=== PATIENT | female | born 1965 | race Caucasian/White ===

== ENCOUNTER 2017-06-09 16:42 | Observation (INO) | payer OTHER ==
[2017-06-09] MEDS ORDERED: ISOVUE-370 76%-LOCM 1 ML ONE (17:19)
[2017-06-09 17:45] LABS: Hematocrit 35.7 % (36.0-47.0); Mean Platelet Volume 6.7 fL (7.4-10.4); Red Blood Cell (RBC) Count 3.09 mill/uL (4.20-5.40); White Blood Cell (WBC) Count 9.7 thou/uL (4.8-10.8)
[2017-06-09 18:01] LABS: ALT (SGPT) 35 U/L (8-55); AST (SGOT) 160 U/L (5-34); Alkaline Phosphatase 135 U/L (40-150); Anion Gap 16 mmol/L (10-20); BUN (Urea Nitrogen) 7 mg/dL (7.0-18.7); Bilirubin, Total 1.4 mg/dL (0.2-1.2); Calc. Creatinine Clearance 0 mL/min (70-130); Calcium 9.2 mg/dL (7.8-10.44); Carbon Dioxide 23 mmol/L (22-29); Chloride 106 mmol/L (98-107); Estimated GFR-MDRD 84; Globulin 3.8 g/dL (2.4-3.5); Protein, Total 7.5 g/dL (6.0-8.3)
[2017-06-09 18:06] LABS: #Basophils 0.2 thou/uL (0.0-0.2); #Eosinphils 0.4 thou/uL (0.0-0.7); #Lymphocytes 2.2 thou/uL (1.20-3.40); #Monocytes 0.6 thou/uL (0.11-0.59); #Neutrophils 6.3 thou/uL (1.40-6.50); %Basophils 1.6 % (0.0-1.0); %Eosinophils 4.4 % (0.0-10.0); %Lymphocytes 22.3 % (21.0-51.0); %Monocytes 6.1 % (0.0-10.0)
[2017-06-09 18:07] LABS: Macrocytosis SLIGHT = 6-15 cells (100X) (0-5/hpf)
[2017-06-09] MEDS ORDERED: Fentanyl 100 MCG/2 ML VIAL ONE ×2 (18:17→19:46)
[2017-06-09 18:20] LABS: Troponin I Less than 0.010 ng/mL (< 0.028)
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
[2017-06-09] MEDS ORDERED: Ondansetron HCl/PF 4 MG/2 ML Vial ONE (20:08)
[2017-06-09] MEDS ORDERED: Ketorolac Tromethamine 30 MG/ML VIAL ONE (20:08)
[2017-06-09 20:16] LABS: Bilirubin Negative (Negative); Blood, Urine Trace (Negative); Glucose, Urine (Dipstick) Negative (Negative); Ketone, Urine Negative (Negative); Nitrite Positive (Negative); Protein, Urine (Dipstick) Trace mg/dL (Neg-Trace)
[2017-06-09 20:17] LABS: Bacteria/HPF 4+ HPF (None Seen); Hyaline Casts/LPF 0-3 HYALINE CAST LPF (0-3 Hyaline); RBC/HPF 0-3 HPF (0-3); Squamous Epithelial 0-3 HPF (0-3)
[2017-06-09 20:25] LABS: Amphetamine Not Detected (NotDetected); Methadone Not Detected (NotDetected); Methamphetamine Not Detected (NotDetected)
[2017-06-09] MEDS ORDERED: Acetaminophen 325 MG TAB PO PRN (21:24)
[2017-06-09] MEDS ORDERED: Morphine 4 MG/ML VIAL SLOW IVP PRN (21:24)
[2017-06-09] MEDS ORDERED: Ondansetron ODT 4 MG TAB SL PRN (21:24)
[2017-06-09] MEDS ORDERED: Ondansetron HCl/PF 4 MG/2 ML Vial IVP PRN ×2 (21:24→21:39)
[2017-06-09] MEDS ORDERED: Rib Fracture Protocol PO SCH (21:39)
[2017-06-09] MEDS ORDERED: Ondansetron ODT 4 MG TAB PO PRN (21:39)
[2017-06-09] MEDS ORDERED: Dextrose 5% in Water 1,000 ML IV PRN (21:39)
[2017-06-09] MEDS ORDERED: Dextrose 50% Abboject 50 ML SYRINGE SLOW IVP PRN (21:39)
[2017-06-09] MEDS ORDERED: Promethazine HCl 25 MG/ML VIAL IM PRN ×2 (21:39)
[2017-06-09] MEDS ORDERED: Cyclobenzaprine 10 MG TAB PO PRN (22:00)
[2017-06-09] MEDS ORDERED: cefTRIAXone\\ROCEPHIN 1 GM in Sodium Chloride 0.9% 100 ML IVPB SCH (22:00)
[2017-06-09] MEDS: Sodium Chloride 0.9% 1,000 ML IV SCH (22:08)
[2017-06-09] MEDS ORDERED: cefTRIAXone\\ROCEPHIN 1 GM, Syringe 0.4 ML in Sterile Water 9.6 ML SLOW IVP SCH (22:15)
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
[2017-06-09] MEDS: traMADol HCl 50 MG TAB PO SCH (23:55)
[2017-06-09] MEDS: Ibuprofen 800 MG TAB PO SCH (23:55)
[2017-06-09] MEDS: Acetaminophen 500 MG TAB PO SCH (23:56)
[2017-06-10] MEDS: Sodium Chloride 0.9% 1,000 ML IV SCH ×2 (05:33→15:51)
[2017-06-10] MEDS: traMADol HCl 50 MG TAB PO SCH ×2 (05:33→12:06)
[2017-06-10] MEDS: Acetaminophen 500 MG TAB PO SCH ×2 (05:34→12:06)
[2017-06-10] MEDS: Ibuprofen 800 MG TAB PO SCH ×2 (05:34→12:06)
[2017-06-10 05:45] LABS: Anion Gap 12 mmol/L (10-20); BUN (Urea Nitrogen) 6 mg/dL (7.0-18.7); Calc. Creatinine Clearance 43 mL/min (70-130); Calcium 7.9 mg/dL (7.8-10.44); Carbon Dioxide 21 mmol/L (22-29); Chloride 106 mmol/L (98-107); Estimated GFR-MDRD Greater than 90
[2017-06-10 05:53] LABS: #Basophils 0.1 thou/uL (0.0-0.2); #Eosinphils 0.2 thou/uL (0.0-0.7); #Lymphocytes 1.4 thou/uL (1.20-3.40); #Monocytes 0.6 thou/uL (0.11-0.59); #Neutrophils 4.9 thou/uL (1.40-6.50); %Basophils 0.9 % (0.0-1.0); %Eosinophils 2.7 % (0.0-10.0); %Lymphocytes 19.9 % (21.0-51.0); %Monocytes 8.9 % (0.0-10.0); Hematocrit 29.1 % (36.0-47.0); Red Blood Cell (RBC) Count 2.54 mill/uL (4.20-5.40); White Blood Cell (WBC) Count 7.2 thou/uL (4.8-10.8)
[2017-06-10] MEDS: hydrALAZINE 20 MG/ML VIAL SLOW IVP PRN ×2 (09:25→15:56)
--- NOTE | 2017-06-10 09:31 | RAD ---
PORTABLE AP CHEST XRAY: DATE: 06/10/17. HISTORY: Followup sternal fracture. COMPARISON: 06/09/17. FINDINGS: Cardiac silhouette and pulmonary vasculature are within normal limits. Lungs are clear. There is mi ld prominence of the right suprahilar region in a right paratracheal location, but a similar finding was noted on the prior exam. There is asymmetric left apical pleural thickening which was present o n the study 06/09/17 that was not present on the studies of 11/11/15. The exact etiology for this fin ding is uncertain. Osseous structures appear intact. No other interval change. IMPRESSION: 1. Left apical pleural-based density which is also seen on the study of 06/09/17. This is likely re lated to patient's recent chest injury and probably related to pleural fluid or small amount of hemor rhage. The lungs are otherwise clear. 2. Prominence of the right suprahilar paratracheal soft tissues, some of which is related to mild di splacement of the fracture fragments involving the sternum, and this was also present on the prior ex am. 3. No evidence of a pneumothorax. POS: [facility]
[2017-06-10] MEDS: Gabapentin 300 MG CAP PO SCH ×2 (10:35→15:57)
[2017-06-10 13:37] VITALS: BMI 17.0
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
[2017-06-10 21:26] VITALS: BP 150/80; TEMP 98.7
== END 2017-06-10 16:55 | disposition home or self-care (01) ==
LOC: ERS 16:42 → SURG B 19:54
PROVIDERS: ADMIT Surgery; ATTEND Surgery
DX: S12.600A Unspecified displaced fracture of seventh cervical vertebra, initial encounter for closed fracture (principal); S22.20XA Unspecified fracture of sternum, initial encounter for closed fracture; G89.11 Acute pain due to trauma; N39.0 Urinary tract infection, site not specified; K74.60 Unspecified cirrhosis of liver; I10 Essential (primary) hypertension; F32.9 Major depressive disorder, single episode, unspecified; F17.210 Nicotine dependence, cigarettes, uncomplicated; V49.40XA Driver injured in collision with unspecified motor vehicles in traffic accident, initial encounter; Z79.899 Other long term (current) drug therapy
CPT/HCPCS: 36415; 70450; 70498; 71010; 71260; 80048; 80053; 80306; 80307; 81003; 81015; 82553; 84484; 85025; 93005; 94640; 96361; 96374; 96375; 96376; A4216; G0378; G0390; G8978-GP-CJ; G8979-GP-CJ; G8980-GP-CJ; G8987-GO-CJ; G8988-GO-CI; J0360; J0696; J1885; J2405; J3010; J7620

== ENCOUNTER 2017-06-25 15:24 | Outpatient (CLI) | payer OTHER ==
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
== END 2017-06-25 15:25 | disposition home or self-care (01) ==
LOC: RAD 15:24
PROVIDERS: ATTEND Nurse Practitioner Acute Care
DX: S79.8 Other specified injuries of hip and thigh (principal)

== ENCOUNTER 2019-03-28 04:56 | Inpatient (IN) | payer OTHER, SELFPAY ==
[2019-03-28] MEDS ORDERED: Ondansetron PF 4 MG/2 ML Vial ONE (05:59)
[2019-03-28] MEDS ORDERED: Octreotide Acetate 1,250 MCG in Sodium Chloride 0.9% 250 ML 250 ML IVPB SCH (06:15)
[2019-03-28] MEDS ORDERED: Pantoprazole 80 MG, Admixture Fee 1 EACH in Sodium Chloride 0.9% 100 ML IVPB SCH (06:15)
[2019-03-28] MEDS ORDERED: Octreotide Acetate 50 MCG/ML AMP SLOW IVP SCH ×2 (06:15→07:15)
[2019-03-28 06:46] LABS: INR-International Normal Ratio 2.4; Prothrombin Time 26.1 SEC (12.0-14.7)
[2019-03-28 06:49] LABS: ALT (SGPT) 19 U/L (8-55); AST (SGOT) 49 U/L (5-34); Albumin 2.5 g/dL (3.5-5.0); Alkaline Phosphatase 75 U/L (40-150); Anion Gap 15 mmol/L (10-20); BUN (Urea Nitrogen) 25 mg/dL (9.8-20.1); Bilirubin, Total 7.1 mg/dL (0.2-1.2); Calc. Creatinine Clearance 0 mL/min (70-130); Calcium 7.8 mg/dL (7.8-10.44); Carbon Dioxide 23 mmol/L (22-29); Chloride 103 mmol/L (98-107); Estimated GFR-MDRD 77; Globulin 2.6 g/dL (2.4-3.5); Glucose 131 mg/dL (70-105); Lipase 17 U/L (8-78); Potassium 3.5 mmol/L (3.5-5.1); Protein, Total 5.1 g/dL (6.0-8.3); Sodium 137 mmol/L (136-145)
[2019-03-28] MEDS ORDERED: Octreotide Acetate 100 MCG/ML VIAL SLOW IVP SCH (07:15)
[2019-03-28 07:20] LABS: #Lymphocytes 1.4 thou/uL (1.20-3.40); #Monocytes 0.7 thou/uL (0.11-0.59); #Neutrophils 8.4 thou/uL (1.40-6.50); %Basophils 0.2 % (0.0-1.0); %Eosinophils 0.4 % (0.0-10.0); %Lymphocytes 13.1 % (21.0-51.0); %Monocytes 6.5 % (0.0-10.0); %Neutrophils 79.9 % (42.0-75.0); Hemoglobin 6.9 g/dL (12.0-16.0); MDiff Complete? YES; Macrocytosis SLIGHT = 6-15 cells (100X) (0-5/hpf); Mean Corpuscular HGB CONC 32.4 g/dL (32.0-36.0); Mean Corpuscular Hemoglobin 39.6 pg (27.0-31.0); Mean Platelet Volume 9.6 fL (7.4-10.4); Platelet Count 103 thou/uL (130-400); Platelet Morphology Comment Appears Decreased; Polychromasia SLIGHT = 2-3 cells (100X) (0-2/hpf); RBC Distribution Width 13.7 % (11.5-14.5); Red Blood Cell (RBC) Count 1.73 mill/uL (4.20-5.40); Target Cells SLIGHT = 2-5 cells (100X) (0-1/hpf); White Blood Cell (WBC) Count 10.6 thou/uL (4.8-10.8)
[2019-03-28] MEDS: Dextrose 5 % And 0.9 % NaCl 1,000 ML IV SCH ×2 (08:46→18:38)
--- NOTE | 2019-03-28 09:09 | HP ---
PRIMARY CARE PHYSICIAN: None. CHIEF COMPLAINT: GI bleed. HISTORY OF PRESENT ILLNESS: Ms. Brandt is a 53-year-old female with a history of cirrhosis, who was evaluated initially at the [place] [facility] for GI bleed. She was prompted to go to the [place] ED following a progressive worsening of nausea and vomiting throughout the day, and then, noticed that the later episodes of emesis contained blood, history of alcoholism as well. Labs of the other ED included elevated lactic acid at 9, hemoglobin of 8.5, glucose 156, bilirubin total 8.5, AST 61, ALT 22, lipase 27. Hematocrit 25.7, platelets 148. Blood pressures in [place] 105/56 and 99/61. Sodium 138, potassium 3.4. The patient was given NS 500 mL, started on a Protonix drip, and was given octreotide at 50 mcg/hour and was given another a liter of fluid and some Zofran 8 mg, and then, transferred to [facility] for further workup and management. She was admitted to the medical floor. REVIEW OF SYSTEMS: The patient reports crampy abdominal pain, still reports some nausea. Reports that vomiting has improved. Does report hematemesis. Reports that she has had cirrhosis for about 5 years and that she has had upper GI scopes in the past. Denies diarrhea or constipation. Denies fever. Does report chills. Denies any chest pain. Does report palpitations. Denies shortness of breath. All other systems are reviewed and are negative unless mentioned in the HPI. PAST MEDICAL HISTORY: Pertinent for cirrhosis, hypertension, gestational diabetes, esophageal varices, and sternal fracture, concussion. PAST SURGICAL HISTORY: She has had endoscopies in the past. PSYCHIATRIC HISTORY: None. SOCIAL HISTORY: The patient is a smoker. She smokes about a half a pack a day, is a social drinker. Drinks at least 2 to 3 times a week. Denies any drug use. Lives at home alone. Reports that she has a scattered family around. ALLERGIES: NONE. CURRENT MEDICATIONS: Listed as none, these have to be verified. PHYSICAL EXAMINATION: VITAL SIGNS: Blood pressure is 98/59, pulse is 100, respirations are 17, temperature is 98.9. CONSTITUTIONAL: The patient is ill-appearing. She is still tachycardic, although she is alert and oriented to person, place and time. HEENT: Head is atraumatic and normocephalic. Eyes; eyelids are normal to inspection. Extraocular muscles are intact. ENT; mouth exam is normal; however, mucous membranes are dry. NECK: Normal range of motion. Trachea is midline. RESPIRATORY/CHEST: Breath sounds are normal. Chest expansion is equal. CARDIOVASCULAR: Rate is tachycardic. Rhythm is regular. Heart sounds are normal. ABDOMEN: Soft. Diffuse mild tenderness. Bowel sounds are heard. BACK: On inspection, range of motion is normal. EXTREMITIES: Upper extremity, normal inspection. Radial pulses are normal. Sensation is intact. Lower extremity, motor strength is normal, sensation intact. There is no edema noted. NEURO: The patient is alert and oriented to person, place, and time. Speech is normal. SKIN: Warm and dry normal in color to the visualized skin. LABORATORY DATA: Lab values when she reached [place], sodium is 137, potassium is 3.5, BUN is 25, creatinine is 0.79, estimated GFR is 77, glucose is 131, lactic acid is 4.3, calcium is 2.8, bilirubin is 7.1, AST is 49, ALT is 19. Coagulation; PT is 26.1, INR is 2.4. White blood cell count is 10.6, hemoglobin is 6.9, hematocrit is 21.1, and platelet count is 103. ASSESSMENT/PLAN: 1. Gastrointestinal bleed with anemia. The patient has D5 normal saline at 100 mL per hour. Octreotide p.o. t.i.d. 50 mcg was given x3 as well as a drip 50 mcg/hour. The patient also has a Protonix drip at 8 mg/hour. We have also typed and screened for 2 units. We will give 1 right now. Recheck hemoglobin and hematocrit every 8 hours. We have asked GI to consult keeping the patient n.p.o. 2. History of hypertension. We will trend p.r.n. medications as needed. 3. Case will be discussed with Dr. Roland for further recommendations. 4. Deep venous thrombosis prophylaxis, gastrointestinal prophylaxis started. 5. Hospital course dependent on clinical findings. Job ID: [id number]
[2019-03-28] MEDS: cefTRIAXone\\ROCEPHIN 1 GM in Sodium Chloride 0.9% 100 ML IVPB SCH (10:11)
[2019-03-28 10:29] LABS: Lactic Acid 3.1 mmol/L (0.5-2.2)
[2019-03-28] MEDS ORDERED: Sodium Chloride 0.9% 10 ML ONE (12:54)
[2019-03-28] MEDS ORDERED: Promethazine HCl 25 MG/ML VIAL ONE (12:54)
[2019-03-28] MEDS ORDERED: Promethazine HCl 25 MG/ML VIAL SLOW IVP PRN (12:56)
[2019-03-28] MEDS ORDERED: Ondansetron HCl/PF 4 MG/2 ML Vial IVP PRN (12:56)
[2019-03-28] MEDS ORDERED: Promethazine HCl 25 MG/ML VIAL IM PRN (12:56)
[2019-03-28 13:12] VITALS: BMI 16.1
[2019-03-28 14:04] LABS: Hemoglobin 6.8 g/dL (12.0-16.0)
[2019-03-28] MEDS ORDERED: PROPOFOL 200 MG/20 ML VIAL ONE (14:15)
[2019-03-28] MEDS ORDERED: EPINEPHrine 1 MG/10 ML Abboject SYRINGE ONE (14:15)
[2019-03-28] MEDS: Multivitamins, Adult 10 ML, Folic Acid 1 MG, Thiamine HCl 100 MG in Dextrose 5 %-0.45 %... IV SCH (14:44)
[2019-03-28 15:09] LABS: Bacteria/HPF 3+ HPF (None Seen); Bilirubin Negative (Negative); Blood, Urine 1+ (Negative); Clarity Turbid (Clear); Glucose, Urine (Dipstick) Normal (Negative); Leukocyte 500 Leu/uL (Negative); Nitrite Negative (Negative); Protein, Urine (Dipstick) 20 mg/dL (Neg-Trace); RBC/HPF 0-3 HPF (0-3); Urobilinogen Normal mg/dL (Less than 2); WBC/HPF Greater than 50 HPF (0-3)
[2019-03-28 15:11] LABS: Urine Culture Reflex No No
[2019-03-28 15:15] LABS: Amphetamine Not Detected (NotDetected); Barbiturates Screen Not Detected (NotDetected); Benzodiazepine Screen Not Detected (NotDetected); Cocaine Metabolite Screen Not Detected (NotDetected); Medtox Control Line Valid? VALID (VALID); Medtox Reader # READER 4; Methadone Not Detected (NotDetected); Methamphetamine Not Detected (NotDetected); Opiate Screen Not Detected (NotDetected); Oxycodone Screen Not Detected (NotDetected); Phencyclidine (PCP) Not Detected (NotDetected); THC/Cannabinoid Screen Not Detected (NotDetected); Tricyclic Screen Not Detected (NotDetected)
--- NOTE | 2019-03-28 18:05 | CON ---
DATE OF CONSULTATION: 03/28/2019 CHIEF COMPLAINT: Vomited blood. HISTORY OF PRESENT ILLNESS: Ms. Brandt is a 53-year-old woman, who states that she started vomiting green material yesterday morning and then vomited red blood several times in the afternoon and then the vomit turned brown again. She has had a history of cirrhosis and has had continued alcohol use. She has not been following with GI or Hepatology. She has had no abdominal pain with this. She has had no diarrhea or constipation. She states that at baseline, she has a bowel movement 2 or 3 times per week. She takes lactulose occasionally, maybe once per month. She has been on spironolactone and furosemide as well, but does not adhere to a low-salt diet. I performed EGD and colonoscopy for her in 2016. A small adenoma was removed from the transverse colon. The EGD revealed small varices in the esophagus and portal hypertensive gastropathy. She had diverticulosis throughout the colon. PAST MEDICAL HISTORY: Alcohol abuse, alcoholic cirrhosis. She has tested negative for viral hepatitis previously. She has antibodies to hepatitis A and hepatitis B indicating appropriate immunity. PAST SURGICAL HISTORY: Upper and lower endoscopy. FAMILY HISTORY: Positive for an aunt with colon cancer. SOCIAL HISTORY: She can drink up to a pint of vodka per day, however, currently she states that she drinks a small amount couple times per week. She is giving a variable history on this. She had told to the nurses a while ago more about the higher doses of vodka. She continues to smoke half pack to a pack a day. No recent drug use. ALLERGIES: NO KNOWN DRUG ALLERGIES. MEDICATIONS: As an outpatient include, 1. Lactulose maybe once per month. 2. Furosemide. 3. Spironolactone. 4. She has been taking no NSAIDs. REVIEW OF SYSTEMS: Negative x10 systems reviewed except as stated in the history of present illness. PHYSICAL EXAMINATION: VITAL SIGNS: Temperature 98.7, pulse 101, blood pressure 95/54. GENERAL: She is in no acute distress. She is jaundiced. Alert and oriented x3. Eyes have slight scleral icterus. LUNGS: Clear to auscultation bilaterally. HEART: Regular rate and rhythm without murmur. ABDOMEN: Soft, nontender, and nondistended. Bowel sounds are present. EXTREMITIES: No lower extremity edema. She has no asterixis on neurological exam. LABORATORY DATA: White blood cell count 10.6, hemoglobin is 6.9, MCV 122, platelets 103. INR 2.4. Creatinine 0.79, bilirubin 7.1, AST 49, ALT 19, albumin 2.5, lipase 17. IMPRESSION: 1. Decompensated cirrhosis secondary to alcohol with ongoing alcohol abuse. Her bilirubin is significantly elevated as well as her INR. 2. Hematemesis. 3. Anemia of acute blood loss. 4. Esophageal varices identified by upper endoscopy in 2016. 5. Tobacco abuse. RECOMMENDATIONS: 1. Octreotide drip. 2. Pantoprazole IV. 3. Blood transfusion and FFP. 4. Thiamine, folate, multivitamin. 5. EGD today. 6. DT precautions and delirium tremens precautions. 7. Antibiotics for SBP prophylaxis. 8. She was counseled on alcohol cessation and low-salt diet. Job ID: [id number]
--- NOTE | 2019-03-28 20:07 | OP ---
DATE OF PROCEDURE: 03/28/2019 PROCEDURES: Esophagogastroduodenoscopy with control of hemorrhage. PREOPERATIVE DIAGNOSES: Hematemesis and anemia of acute blood loss and cirrhosis. OPERATIVE NOTE: Informed consent was obtained from the patient. She was sedated with total intravenous anesthesia. The bite block was placed and the endoscope was advanced easily to the second portion of the duodenum and retroflexion was performed in the stomach. The esophagus had grade 1 to 2 varices in the distal 5 cm of the esophagus. There were no red signs or stigmata of recent bleeding. These did flatten with insufflation. She has a Erendira-Lei tear at the GE junction that was actively bleeding. This was injected with epinephrine 2 mL, 1:10,000 and a hemoclip was placed to close the tear over the vessel. This achieved good hemostasis. The stomach had portal hypertensive gastropathy throughout. Retroflexed views in the stomach revealed no gastric varices. The pylorus and first and second portions of the duodenum were normal. IMPRESSION: 1. Grade 1 to 2 distal esophageal varices without red signs or stigmata of recent bleeding. 2. Erendira-Lei tear at the gastroesophageal junction, which was actively bleeding. This was injected with epinephrine and treated with a hemoclip placement with good hemostasis confirmed. 3. Portal hypertensive gastropathy. 4. Otherwise normal esophagogastroduodenoscopy. RECOMMENDATIONS: 1. Discontinue proton pump inhibitor IV b.i.d. 2. Okay to discontinue octreotide drip tomorrow morning. 3. Follow trend of her hemoglobin, status post transfusion. 4. Check ultrasound of the liver and alpha-fetoprotein for hepatoma screening. 5. Alcohol and smoking cessation. Job ID: [id number]
[2019-03-28] MEDS: Acetaminophen 325 MG TAB PO PRN (20:23)
[2019-03-28] MEDS: Pantoprazole 40 MG VIAL IVP SCH (20:23)
[2019-03-29 00:41] LABS: Hemoglobin 7.9 g/dL (12.0-16.0)
[2019-03-29 06:46] LABS: Hemoglobin 8.3 g/dL (12.0-16.0)
[2019-03-29] MEDS: Dextrose 5 % And 0.9 % NaCl 1,000 ML IV SCH ×2 (06:56→19:22)
[2019-03-29 07:09] LABS: Lactic Acid 1.5 mmol/L (0.5-2.2)
[2019-03-29 07:10] LABS: ALT (SGPT) 13 U/L (8-55); AST (SGOT) 40 U/L (5-34); Albumin 2.3 g/dL (3.5-5.0); Alkaline Phosphatase 65 U/L (40-150); Anion Gap 7 mmol/L (10-20); BUN (Urea Nitrogen) 21 mg/dL (9.8-20.1); Bilirubin, Total 5.3 mg/dL (0.2-1.2); Calc. Creatinine Clearance 72 mL/min (70-130); Calcium 6.7 mg/dL (7.8-10.44); Carbon Dioxide 24 mmol/L (22-29); Chloride 109 mmol/L (98-107); Estimated GFR-MDRD 79; Globulin 2.2 g/dL (2.4-3.5); Glucose 106 mg/dL (70-105); Protein, Total 4.5 g/dL (6.0-8.3); Sodium 137 mmol/L (136-145)
[2019-03-29 07:18] LABS: Potassium 2.9 mmol/L (3.5-5.1)
[2019-03-29] MEDS ORDERED: Potassium Chloride 20 MEQ in Premix Bag 1 BAG IVPB SCH (07:30)
[2019-03-29 07:37] LABS: #Eosinphils 0.2 thou/uL (0.0-0.7); #Lymphocytes 1.2 thou/uL (1.20-3.40); #Monocytes 0.4 thou/uL (0.11-0.59); #Neutrophils 3.5 thou/uL (1.40-6.50); %Basophils 0.5 % (0.0-1.0); %Eosinophils 3.9 % (0.0-10.0); %Lymphocytes 22.4 % (21.0-51.0); %Monocytes 7.6 % (0.0-10.0); %Neutrophils 65.6 % (42.0-75.0); Hemoglobin 8.3 g/dL (12.0-16.0); MDiff Complete? YES; Macrocytosis SLIGHT = 6-15 cells (100X) (0-5/hpf); Mean Corpuscular HGB CONC 34.1 g/dL (32.0-36.0); Mean Corpuscular Hemoglobin 36.8 pg (27.0-31.0); Mean Platelet Volume 8.7 fL (7.4-10.4); Platelet Count 72 thou/uL (130-400); Platelet Morphology Comment Appears Decreased; RBC Distribution Width 19.7 % (11.5-14.5); Red Blood Cell (RBC) Count 2.25 mill/uL (4.20-5.40); White Blood Cell (WBC) Count 5.3 thou/uL (4.8-10.8)
[2019-03-29] MEDS: Pantoprazole 40 MG VIAL IVP SCH ×2 (08:23→19:22)
[2019-03-29] MEDS: cefTRIAXone\\ROCEPHIN 1 GM in Sodium Chloride 0.9% 100 ML IVPB SCH (10:56)
--- NOTE | 2019-03-29 11:22 | PRG ---
DATE OF SERVICE: 03/29/2019 SUBJECTIVE: Ms. Brandt has had no bowel movement today. She has no abdominal pain. OBJECTIVE: GENERAL: She is jaundiced. She has no acute distress. Alert and oriented x3. NEUROLOGIC: She has no asterixis on neurological exam. LUNGS: Clear to auscultation bilaterally. HEART: Regular rate and rhythm without murmur. ABDOMEN: Soft, nontender, nondistended. Bowel sounds are present. EXTREMITIES: No lower extremity edema. LABORATORY DATA: White blood cell count 5.3, hemoglobin 8.3, platelets 72,000. Creatinine is 0.77, bilirubin 5.3, AST 40, ALT 13, and albumin 2.3. IMPRESSION: 1. Acute gastrointestinal bleed secondary to Erendira-Lei tear at the GE junction, status post hemoclip placement. 2. Anemia of acute blood loss. Her hemoglobin responded appropriately to transfusion. 3. Decompensated cirrhosis with ongoing alcohol use. RECOMMENDATIONS: 1. We can advance to a soft low-fat diet today. 2. Add lactulose daily. 3. Follow trend of her hemoglobin. 4. Continue proton pump inhibitor IV. 5. Complete alcohol cessation is advised. Job ID: [id number]
[2019-03-29] MEDS: Multivitamins, Adult 10 ML, Folic Acid 1 MG, Thiamine HCl 100 MG in Dextrose 5 %-0.45 %... IV SCH (12:47)
--- NOTE | 2019-03-29 16:25 | PDOC.HOSPP ---
- Subjective Encounter Date: 03/29/19 Encounter Time: 10:00 Subjective: pt up in bed no abdomen pain, tolerating her oral liquids - Objective Vital Signs & Weight: Vital Signs (12 hours) Temp Pulse Resp BP BP Pulse Ox 03/29/19 12:06 99.4 F 75 16 100/63 92 L 03/29/19 12:00 100/63 03/29/19 08:36 99.3 F 71 20 95/62 95 03/29/19 08:00 95/62 94 L Weight Weight 115 lb 12.8 oz I&O: 03/28/19 03/29/19 03/30/19 06:59 06:59 06:59 Intake Total 2690 Balance 2690 Result Diagrams: 03/29/19 06:06 03/29/19 06:06 Hospitalist ROS - Review of Systems Respiratory: denies: cough, dry, shortness of breath, hemoptysis, SOB with excertion, pleuritic pain, sputum, wheezing, other Cardiovascular: denies: chest pain, palpitations, orthopnea, paroxysmal noc. dyspnea, edema, light headedness, other Gastrointestinal: denies: nausea, vomiting, abdominal pain, diarrhea, constipation, melena, hematochezia, other - Medication Medications: Active Medications Generic Name Dose Route Start Last Admin Trade Name Freq PRN Reason Stop Dose Admin Acetaminophen 650 mg 03/28/19 19:43 03/28/19 20:23 Tylenol PO 650 mg Q6H PRN Administration Fever/Mild Pain Dextrose/Sodium Chloride 1,000 mls @ 100 mls/hr 03/28/19 06:15 03/29/19 06:56 D5 0.9% Ns IV Not Given .Q10H LATRICIA Ceftriaxone Sodium 1 gm/ 100 mls @ 200 mls/hr 03/28/19 09:00 03/29/19 10:56 Sodium Chloride IVPB 100 mls Q24HR LATRICIA Administration Multivitamins 10 ml/ Folic 1,011.2 mls @ 200 mls/hr 03/28/19 11:45 03/29/19 12:47 Acid 1 mg/ Thiamine HCl 100 mg IV 03/31/19 11:46 1,011.2 mls / Dextrose/Sodium Chloride Q24HR LATRICIA Administration Pantoprazole Sodium 40 mg 03/28/19 21:00 09/15/19 08:23 Protonix IVP 40 mg Q12HR LATRICIA Administration - Exam Heart: negative: RRR, no murmur, no gallops, no rubs, normal peripheral pulses, irregular, diminshed peripheral pulses, murmur present, II/IV, III/IV Respiratory: negative: CTAB, no wheezes, no rales, no ronchi, normal chest expansion, no tachypnea, normal percussion, rales, rhonchi, tachypneic, wheezes Gastrointestinal: negative: soft, non-tender, non-distended, normal bowel sounds , no palpable masses, no hepatomegaly, no splenomegaly, no bruit, no guarding, no rigidity, tender to palpation, distended, diminished bowl sounds, voluntary guarding Hosp A/P (1) Hematemesis Code(s): K92.0 - HEMATEMESIS Status: Acute (2) Erendira-Lei tear Code(s): K22.6 - GASTRO-ESOPHAGEAL LACERATION-HEMORRHAGE SYNDROME Status: Acute (3) Hypokalemia Code(s): E87.6 - HYPOKALEMIA Status: Acute (4) Cirrhosis Code(s): K74.60 - UNSPECIFIED CIRRHOSIS OF LIVER Status: Chronic - Plan will continue ppi, hh stable. pt on full liquid diet. octreotid drip discontinued.
[2019-03-30] MEDS: Dextrose 5 % And 0.9 % NaCl 1,000 ML IV SCH ×3 (05:06→20:17)
[2019-03-30 06:02] LABS: ALT (SGPT) 18 U/L (8-55); AST (SGOT) 51 U/L (5-34); Albumin 2.4 g/dL (3.5-5.0); Alkaline Phosphatase 75 U/L (40-150); Anion Gap 7 mmol/L (10-20); BUN (Urea Nitrogen) 11 mg/dL (9.8-20.1); Bilirubin, Total 4.3 mg/dL (0.2-1.2); Calc. Creatinine Clearance 77 mL/min (70-130); Calcium 7.1 mg/dL (7.8-10.44); Carbon Dioxide 20 mmol/L (22-29); Chloride 108 mmol/L (98-107); Estimated GFR-MDRD 85; Globulin 2.3 g/dL (2.4-3.5); Glucose 113 mg/dL (70-105); Potassium 3.5 mmol/L (3.5-5.1); Protein, Total 4.7 g/dL (6.0-8.3); Sodium 131 mmol/L (136-145)
[2019-03-30 07:20] LABS: #Basophils 0.1 thou/uL (0.0-0.2); #Eosinphils 0.4 thou/uL (0.0-0.7); #Lymphocytes 0.8 thou/uL (1.20-3.40); #Monocytes 0.3 thou/uL (0.11-0.59); #Neutrophils 2.5 thou/uL (1.40-6.50); %Basophils 1.4 % (0.0-1.0); %Eosinophils 9.5 % (0.0-10.0); %Lymphocytes 20.5 % (21.0-51.0); %Monocytes 7.4 % (0.0-10.0); %Neutrophils 61.2 % (42.0-75.0); Hemoglobin 8.8 g/dL (12.0-16.0); MDiff Complete? YES; Macrocytosis SLIGHT = 6-15 cells (100X) (0-5/hpf); Mean Corpuscular HGB CONC 33.7 g/dL (32.0-36.0); Mean Corpuscular Hemoglobin 36.7 pg (27.0-31.0); Mean Platelet Volume 8.3 fL (7.4-10.4); Platelet Count 73 thou/uL (130-400); Platelet Morphology Comment Appears Decreased; RBC Distribution Width 18.8 % (11.5-14.5); Red Blood Cell (RBC) Count 2.39 mill/uL (4.20-5.40); White Blood Cell (WBC) Count 4.1 thou/uL (4.8-10.8)
[2019-03-30] MEDS: cefTRIAXone\\ROCEPHIN 1 GM in Sodium Chloride 0.9% 100 ML IVPB SCH (08:40)
[2019-03-30] MEDS: Pantoprazole 40 MG VIAL IVP SCH ×2 (08:43→20:17)
[2019-03-30] MEDS: Multivitamins, Adult 10 ML, Folic Acid 1 MG, Thiamine HCl 100 MG in Dextrose 5 %-0.45 %... IV SCH ×2 (12:13→16:29)
--- NOTE | 2019-03-30 17:16 | ULT ---
US Hepatic Doppler: 03/30/2019 11:52 AM CLINICAL HISTORY: Cirrhosis. STUDY: Right upper quadrant ultrasound of liver. TECHNIQUE: Multiplanar grayscale and color Doppler images were obtained in a ultrasound of the right upper quadrant of the abdomen. Spectral analysis of the Doppler waveforms of the hepatic and splenic vessels were performed. COMPARISON: None. FINDINGS: Liver: Size: Normal. Echogenicity: Normal. Contour: Nodular consistent with cirrhosis. Mass: None. There is a moderate amount of ascites. Bile ducts: No intrahepatic or extrahepatic biliary dilatation. Common bile duct measures 6 mm. Gallbladder: Visible stones and sludge are seen in the gallbladder. Apparent gallbladder wall thicken ing may be secondary to ascites. Pancreas: Head, body, and tail appear normal. Hepatic veins: Normal waveforms. Normal directional flow. Portable veins: Normal waveforms. Normal directional flow. Hepatic arteries: Normal waveforms. Normal directional flow. Splenic vein: Normal waveforms. Normal directional flow. Splenic artery: Normal waveforms. Normal directional flow. The spleen is normal in echogenicity without focal lesions and measures 11.6cm in length. IMPRESSION: 1. Cirrhosis with ascites 2. Cholelithiasis
[2019-03-31 03:51] VITALS: BP 119/74; TEMP 97.9
[2019-03-31] MEDS: Acetaminophen 325 MG TAB PO PRN (05:54)
[2019-03-31] MEDS: cefTRIAXone\\ROCEPHIN 1 GM in Sodium Chloride 0.9% 100 ML IVPB SCH (08:07)
[2019-03-31] MEDS: Pantoprazole 40 MG VIAL IVP SCH (08:08)
--- NOTE | 2019-03-31 22:37 | DIS ---
DATE OF ADMISSION: 03/28/2019 DATE OF DISCHARGE: 03/31/2019 DISCHARGE DIAGNOSES: 1. Hematemesis. 2. Erendira-Lei tear. 3. Hypokalemia. 4. Cirrhosis. HOSPITAL COURSE: The patient is a 53-year-old female, who initially presented to the hospital with nausea, vomiting, and had one bout of hematemesis. She was seen by GI and underwent an endoscopy that indicated grade 1-2 distal esophageal varices without any stigmata of bleeding. Also had a Erendira-Lei tear in her GE junction, which was actively bleeding. This was injected with epinephrine and was treated with hemoclip placement with good hemostasis. She also has portal hypertensive gastropathy. Initially, she was on a PPI drip and octreotide drip. Her PPI drip and octreotide drip was stopped and she was changed to oral PPI. She did have alpha fetoprotein drawn, which was normal at 5.7. Her electrolytes were replaced. Her bilirubin initially was 7, which decreased down to 4.3 and continued to trend down. Her H and H have been stable at 8.8. She did have a right upper quadrant ultrasound, which did indicate sludge and cholelithiasis. I have told the patient that she will follow up with Surgery. This could have caused her possible to have nausea and vomiting versus I know her drinking. I have advised her against alcohol use and she understands that. However, I told her that if she starts having nausea, vomiting, abdominal pain or fevers, and right upper quadrant pain, she needs to come into the hospital for evaluation. The patient understands that. HOME MEDICATIONS: She is going to be on: 1. Lactulose 20 mg t.i.d. 2. Zofran 8 mg t.i.d. 3. Protonix 40 mg b.i.d. 4. Thiamine 100 mg daily. 5. Tramadol 50 mg daily p.r.n. 6. Lasix 20 mg b.i.d. 7. Spironolactone 25 mg daily. 8. Claritin 10 mg b.i.d. p.r.n. 9. Tramadol 50 mg as needed. PHYSICAL EXAMINATION: VITAL SIGNS: Temperature 97.9, 74, 16, 94% on room air, 119/74. GENERAL: She is awake, alert and oriented x3, does not appear in distress. CV: S1, S2 present. No murmurs, rubs, or gallops. ABDOMEN: Soft and nontender. Bowel sounds are present x2. Again, she will be discharged home. She will follow up with her primary and also with GI, and I have provided her number for Surgical Services if she starts having any issues in terms of right upper quadrant pain, nausea, and vomiting. She needs to come into the ER or else follow up with Surgery as outpatient. Job ID: [id number]
== END 2019-03-31 13:09 | disposition home or self-care (01) | DRG 369 ==
LOC: ERS 04:56 → T4-A 05:52
PROVIDERS: ADMIT Internal Medicine; ATTEND Internal Medicine
PROC: 0W3P8ZZ Control Bleeding in Gastrointestinal Tract, Via Natural or Artificial Opening Endoscopic (ICD-10-PCS; principal; 2019-03-28)
PROC: 30233L1 Transfusion of Nonautologous Fresh Plasma into Peripheral Vein, Percutaneous Approach (ICD-10-PCS; 2019-03-28)
PROC: 30233N1 Transfusion of Nonautologous Red Blood Cells into Peripheral Vein, Percutaneous Approach (ICD-10-PCS; 2019-03-28)
PROC: 30233K1 Transfusion of Nonautologous Frozen Plasma into Peripheral Vein, Percutaneous Approach (ICD-10-PCS; 2019-03-28)
DX: K22.6 Gastro-esophageal laceration-hemorrhage syndrome (principal); F10.188 Alcohol abuse with other alcohol-induced disorder; D62 Acute posthemorrhagic anemia; K76.6 Portal hypertension; K70.30 Alcoholic cirrhosis of liver without ascites; I85.10 Secondary esophageal varices without bleeding; K31.89 Other diseases of stomach and duodenum; I10 Essential (primary) hypertension; F17.210 Nicotine dependence, cigarettes, uncomplicated; K80.20 Calculus of gallbladder without cholecystitis without obstruction; E87.6 Hypokalemia; Z79.899 Other long term (current) drug therapy
CPT/HCPCS: 36415; 36430; 76705; 80053; 80306; 82105; 83605; 83690; 83735; 85025; 85610; 86850; 86900; 86901; 87086; 96361; 96374; C9113; J0171; J0696; J2354; J2405; J2550; J2704; J3411; J3480; J3490; J7042; J7050; P9016; P9059